=== PATIENT | male | born 1930 | race Caucasian/White ===

== ENCOUNTER 2016-06-28 07:44 | Inpatient (IN) | payer MEDICARE ==
[2016-06-28] VITALS (7 sets, daily range): BP systolic 121–157; BP diastolic 56–95
[~2016-06-28] VITALS: Ht 175.2 cm; Wt 85.7 kg
--- NOTE | ~2016-06-28 | PR ---
[place], [place] PROGRESS NOTE NAME: [id number] UNIT #: [id number] ROOM: 408 DOCTOR: REHAN HAMMOND MD BIRTHDATE: [birth year] DOS: 07/03/2016 SUBJECTIVE: The patient is feeling good, does not have any new complaints. OBJECTIVE: VITAL SIGNS: Blood pressure is 147/73, pulse of 75, respirations 20, temperature 97.5. LUNGS: Clear. HEART: Regular. ABDOMEN: Obese, soft. EXTREMITIES: Without any edema. ASSESSMENT AND PLAN: 1. Acute exacerbation of chronic obstructive pulmonary disease, improved and stable. Plan will be to discharge him to the retirement. 2. Chronic kidney injury with GFR 48, stage III renal failure. The patient to avoid nephrotoxic meds. REHAN HAMMOND MD CM:PNMANDA [id number] REHAN HAMMOND MD 07/03/16 0933 interface
--- NOTE | ~2016-06-28 | WRIGHTHP ---
[place], [place] PATIENT HISTORY AND PHYSICAL EXAM NAME: VALENCIA BEE [facility] #: [id number] UNIT #: [id number] ROOM: 408 DOCTOR: REHAN HAMMOND MD BIRTHDATE: [birth year] DOS: 06/28/2016 HISTORY OF PRESENT ILLNESS: The patient is not known to me, 86 years old, who comes in with complaints of difficulty breathing. The patient has had multiple admissions in the hospital, the last one was in March 2016. The patient states that at this time, he has had a cough for about 2-3 days. He has had a couple of ER visits and did not get any better, so he has been admitted to the hospital. PAST MEDICAL HISTORY: Significant for 1. COPD, oxygen dependent. 2. Frailty. He lives at the [facility]. 3. Acute exacerbation of COPD, failed outpatient regimen. 4. Benign prostatic hypertrophy. 5. History of acute kidney injury with hyperkalemia. 6. Benign hypertension. 7. Primary osteoarthritis of the lower legs. 8. CA of prostate. MEDICATIONS: That he is currently on are amlodipine 5 daily, vitamin D 50,000 units daily, Levaquin 500 daily, loratadine 10 daily, meloxicam 7.5 b.i.d., omeprazole 20 daily, polyethylene glycol 17 grams daily, trazodone 100 at bedtime. SOCIAL HISTORY: He smokes about 3 cigars a week. He was a smoker at home before the oxygen was started. He used to smoke a pack in a week. PHYSICAL EXAMINATION: GENERAL: He is awake and alert and oriented in no major distress. VITAL SIGNS: Graphic trend shows blood pressure 160/60, pulse of 80, respirations 18, temperature 98.5. LUNGS: Diminished breath sounds, scattered wheezes. HEART: Regular. ABDOMEN: Obese, soft. EXTREMITIES: Without any edema. ASSESSMENT AND PLAN: 1. The patient who has chronic obstructive pulmonary disease, centrilobular emphysema with acute exacerbation. He has failed outpatient regimen with antibiotics, has been admitted for IV steroids and antibiotics. Also, maximized the bronchodilators on his regimen. 2. History of kidney failure. His BUN and creatinine at 38 and 1.2. He may not be a good candidate for meloxicam, which will be discontinued. 3. Primary insomnia, was given Ambien yesterday. The patient states it did not work. We will switch to Restoril this morning. [place], [place] PATIENT HISTORY AND PHYSICAL EXAM NAME: VALENCIA BEE UNIT #: [id number] ROOM: [facility] DOCTOR: REHAN HAMMOND MD BIRTHDATE: [birth year] REHAN HAMMOND MD CM:HISPHYS:PATIENT HISTORY AND PHYSICAL EXAMINATION [id number] REHAN HAMMOND MD 06/29/16 1112 interface
--- NOTE | ~2016-06-28 | PR ---
[place], [place] PROGRESS NOTE NAME: VALENCIA BEE UNIT #: [id number] ROOM: 408 DOCTOR: REHAN HAMMOND MD BIRTHDATE: [birth year] DOS: SUBJECTIVE: The patient has a hoarse voice this morning. OBJECTIVE: VITAL SIGNS: Graphic trend shows pressure 152/68, pulse of 74, respirations 20, temperature 97.5. LUNGS: Diminished breath sounds. HEART: Regular. ABDOMEN: Obese, soft. EXTREMITIES: Without any edema. LABORATORY DATA: Blood pressure 152/68, pulse of 74, respirations 20, temperature 97.5. Blood culture showed no bacterial growth. MRSA of the nares was negative. ASSESSMENT AND PLAN: 1. The patient who presents with acute exacerbation of COPD. The patient has been admitted. IV steroids and breathing treatments have been ordered. He is definitely improving. We will taper the steroids down. 2. Hoarse of the voice, acute laryngitis could be from the Pulmicort that he is on. We will discontinue the medication. 3. Chronic renal failure. Avoid nephrotoxic meds. We will do a basic metabolic panel in the morning and plan is to discharge him to [place] tomorrow. REHAN HAMMOND MD CM:PNTRANS [id number] REHAN HAMMOND MD 07/02/16 0037 interface
--- NOTE | ~2016-06-28 | PR ---
[place], [place] PROGRESS NOTE NAME: VALENCIA BEE UNIT #: [id number] ROOM: 408 DOCTOR: REHAN HAMMOND MD BIRTHDATE: [birth year] DOS: 07/02/2016 SUBJECTIVE: The patient appears to be quite sleepy. It was hard to wake him up and he fell asleep again while talking to me. OBJECTIVE: VITAL SIGNS: Graphic trend shows that he is afebrile, pressure is 119/58, pulse is 66, respirations 20, temperature 98.2. LUNGS: Clear. HEART: Regular. ABDOMEN: Obese. EXTREMITIES: Without any edema. Small abrasion on his left emery area, which is resolving. LABORATORY DATA: White cell count is up to 14.5 this morning, it could be steroid effect. I do not have the basic metabolic panel yet. Blood culture showed no bacterial growth. MRSA nares was negative. ASSESSMENT AND PLAN: 1. The patient with acute exacerbation of chronic obstructive pulmonary disease, improving. We will taper the steroids further down. 2. Primary insomnia. He asked for a new sleeping medicine. He was given Restoril and he was also on trazodone, which may be too much for this 86-year-old patient. We will discontinue Restoril, ambulate the patient and make sure that he is stable enough to go back to the correction. REHAN HAMMOND MD CM:PNTRANS 0734 1231 REHAN HAMMOND MD 07/02/16 1230 interface
--- NOTE | ~2016-06-28 | DS ---
[place], [place] DISCHARGE SUMMARY NAME: VALENCIA BEE [facility] #: [id number] UNIT #: [id number] ROOM: 408 DOCTOR: REHAN HAMMOND MD BIRTHDATE: [birth year] DOS: HOSPITAL COURSE: The patient is 86 years old, not known to me. The patient is a resident of [facility], was brought in with complaints of difficulty breathing. He was on antibiotics already and did not have any improvement. He was brought in to the Emergency Room. He has a cough, which is productive of scant amounts of sputum. Also has shortness of breath. Please refer to H and P for details. After evaluation in the ER, he was admitted with diagnosis of acute exacerbation of COPD, failed outpatient regimen. The patient was admitted. IV steroids, IV antibiotics, and breathing treatments were ordered. He did complain of lack of sleep. Restoril was given, but it made him too sleepy and then had to discontinue the medication. Because of his increased sleepiness, he also was not taking too much of water, and so his BUN did go up slightly. Creatinine continued to improve. Slight hydration was given. The patient is not having any new complaints and is overall much better. He had normal lactic acid on admission, but blood cultures were done. This has come back negative. Nares cultures showed no evidence of MRSA. He does have a small wound on the left emery from bumping his leg on his bed. TheraHoney dressings were ordered, and we can continue dressings the same as at the half-way. The patient is stable. Discharge is being arranged for today back to the half-way. DISCHARGE MEDICATIONS: Guaifenesin 600 b.i.d., Ceftin 250 twice daily for 5 days, breathing treatments of DuoNeb q.i.d. p.r.n. for shortness of breath, amlodipine 5 daily, loratadine 10 daily, MiraLax 17 g daily, omeprazole 20 daily, trazodone 100 daily, vitamin D 50,000 units once a week, Aspercreme for local application b.i.d., povidone iodine ointment for local application to the left emery area, Tylenol 325 q.6 h. p.r.n. REHAN HAMMOND MD CM:JOSE 0832 1 REHAN HAMMOND MD 07/03/16 0921 interface
--- NOTE | ~2016-06-28 | PR ---
[place], [place] PROGRESS NOTE NAME: VALENCIA BEE UNIT #: [id number] ROOM: 408 DOCTOR: REHAN HAMMOND MD BIRTHDATE: [birth year] DOS: SUBJECTIVE: The patient seems to have rested well during the night. His cough and shortness of breath has subsided. OBJECTIVE: VITAL SIGNS: Graphic trend shows that he is afebrile, blood pressure 123/51, pulse of 70, respirations 20, temperature 98.5. LUNGS: Diminished breath sounds, but clear. HEART: Regular. ABDOMEN: Obese, soft, nontender. EXTREMITIES: Without any edema. A small bruised area noticed on the left eemry. ASSESSMENT AND PLAN: 1. An 86-year-old presents with cough and shortness of breath and acute exacerbation of COPD, failed outpatient regimen. 2. Primary insomnia, improved after the addition of new medicines. 3. Chronic kidney disease with history of acute kidney injury, nephrotoxic meds to be avoided. 4. Injury resulting in a small abrasion on the left emery area, is getting TheraHoney gel to the local area. The patient is stable, our plan is to [facility] him back to the [facility] tomorrow. REHAN HAMMOND MD CM:PNTRANS 0716 [id number] REHAN HAMMOND MD 06/30/16 1254 interface
[~2016-06-28 07:44] MED LIST: AMBIEN10 MG PO; AMINOPHYLLIN200 MG PO; AMLODIPINE BESYL5 MG PO; ASPERCREAM1 EA T; ASPERCREME76.5 GM TP; CLARITIN10 MG PO; K-PHOS500 MG PO; LEVAQUIN500 M2 PO; LISINOPRIL30 MG PO; MIRALAX POWDER255 G1 PO; MOBIC7.5 MG PO; NORVASC5 MG PO; OMEPRAZOLE D/R20 MG PO; POVIDONE IODINE T; PRILOSEC20 M1 PO; QUALITY CHOICE10 M3 PO; ROBITUSSIN DM 105 ML PO; SERTRALINE HYDR25 MG PO; SILVASORB TP; SMZ-TMP 400 MG-1 TAB PO; TRAZODONE HYDR100 MG PO; TRAZODONE100 MG PO; TYLENOL325 M1 PO; VIBRAMYCIN100 MG PO; VITAMIN D22000 UNIT PO; VITAMIN D50000 I3 PO; Zestril,Prinivi40 MG PO
[2016-06-28 08:19] LABS: HEMATOCRIT 37.6 % (42.0-52.0); HEMOGLOBIN 11.8 g/dl (14.0-18.0); MEAN CELL VOLUME 88.9 fl (80.0-94.0); MEAN CORPUSCULAR HGB 27.9 pg (27.0-31.0); MEAN CORPUSCULAR HGB CONC 31.4 g/dl (33.0-37.0); MEAN PLATELET VOLUME 10.5 fl (9.6-12.3); PLATELET COUNT AUTOMATED 172 10*3/uL (130-400); RED BLOOD COUNT 4.23 10*6/uL (4.50-5.90); RED CELL DISTRI WIDTH 15.9 % (0-14.5); WHITE BLOOD COUNT 12.8 10*3/uL (4.8-10.8)
[2016-06-28 08:36] LABS: PROTHROMBIN TIME 10.1 SECONDS (9.0-12.4)
[2016-06-28 08:37] LABS: BURR CELLS FEW; EOSINOPHIL # 0.3 10*3/uL (0-0.4); EOSINOPHILS 2 % (1-4); LYMPHOCYTE # 1.9 10*3/uL (1.3-4.4); MONOCYTE # 1.5 10*3/uL (0.1-1.0); NEUTROPHIL # 9.1 10*3/uL (2.3-7.9); NEUTROPHILS 71 % (47-73); OVALOCYTES FEW; PLATELET SUFFICIENCY NORMAL (NORMAL); TOTAL CELLS COUNTED 100 #CELLS
[2016-06-28 08:43] LABS: BILIRUBIN, TOTAL 0.5 mg/dl (0.2-1.0); C-REACTIVE PROTEIN 11.1 MG/DL (0-0.3); CKMB 2.7 ng/ml (0.5-3.6); MAGNESIUM 2.3 mg/dL (1.5-2.1); POTASSIUM 4.8 mmol/L (3.5-5.1); TOTAL PROTEIN 7.1 gm/dL (6.4-8.2)
[2016-06-29] VITALS: BP 151/69
[2016-06-29 08:00] VITALS: BP 160/60
[2016-06-29 12:00] VITALS: BP 144/61
[2016-06-29 16:00] VITALS: BP 138/59
[2016-06-29 20:00] VITALS: BP 163/61
[2016-06-30] VITALS: BP 123/51
[2016-06-30 08:00] VITALS: BP 132/55
[2016-06-30 12:00] VITALS: BP 120/51
[2016-06-30 16:00] VITALS: BP 134/60
[2016-06-30 20:00] VITALS: BP 120/54
[2016-07-01] VITALS: BP 137/48
[2016-07-01 08:00] VITALS: BP 152/68
[2016-07-01 13:00] VITALS: BP 135/52
[2016-07-01 16:00] VITALS: BP 124/50
[2016-07-01 20:00] VITALS: BP 152/63
[2016-07-02] VITALS: BP 119/58
[2016-07-02 07:07] LABS: HEMATOCRIT 36.8 % (42.0-52.0); HEMOGLOBIN 11.7 g/dl (14.0-18.0); MEAN CELL VOLUME 87.6 fl (80.0-94.0); MEAN CORPUSCULAR HGB 27.9 pg (27.0-31.0); MEAN CORPUSCULAR HGB CONC 31.8 g/dl (33.0-37.0); MEAN PLATELET VOLUME 10.6 fl (9.6-12.3); PLATELET COUNT AUTOMATED 155 10*3/uL (130-400); RED CELL DISTRI WIDTH 15.9 % (0-14.5); WHITE BLOOD COUNT 14.5 10*3/uL (4.8-10.8)
[2016-07-02 07:28] LABS: ACANTHOCYTES FEW; BURR CELLS FEW; LYMPHOCYTE # 0.3 10*3/uL (1.3-4.4); MONOCYTE # 0.6 10*3/uL (0.1-1.0); NEUTROPHIL # 13.6 10*3/uL (2.3-7.9); NEUTROPHILS 94 % (47-73); PLATELET SUFFICIENCY NORMAL (NORMAL); TOTAL CELLS COUNTED 100 #CELLS
[2016-07-02 07:34] LABS: POTASSIUM 4.7 mmol/L (3.5-5.1)
[2016-07-02 08:00] VITALS: BP 138/51
[2016-07-02 16:00] VITALS: BP 156/63
[2016-07-02 20:00] VITALS: BP 143/59
[2016-07-03] VITALS: BP 130/54
[2016-07-03 08:00] VITALS: BP 147/73
[2016-07-03] MEDS ORDERED: CEFUROXIME AXE250 MG PO (08:05)
[2016-07-03] MEDS ORDERED: MUCINEX ER600 MG PO (08:05)
[2016-07-03] MEDS ORDERED: DUONEB 3 MG/3 ML3 M1 INH (08:05)
== END 2016-07-03 15:07 | DRG 682 ==
LOC: ED 07:44 → 4E 09:20 → EDHOLD 09:20 → 4E 09:59
PROVIDERS: Emergency Medicine; Internal Medicine
DX: N17.9 Acute kidney failure, unspecified (principal); J18.9 Pneumonia, unspecified organism; Z99.81 Dependence on supplemental oxygen; J44.0 Chronic obstructive pulmonary disease with (acute) lower respiratory infection; J44.1 Chronic obstructive pulmonary disease with (acute) exacerbation; N18.3 Chronic kidney disease, stage 3 (moderate); F51.01 Primary insomnia; G47.9 Sleep disorder, unspecified; S80.812A Abrasion, left lower leg, initial encounter; I12.9 Hypertensive chronic kidney disease with stage 1 through stage 4 chronic kidney disease, or unspecified chronic kidney disease; Z85.46 Personal history of malignant neoplasm of prostate

== ENCOUNTER 2016-07-16 20:10 | Inpatient (IN) | payer MEDICARE ==
[~2016-07-16] VITALS: Ht 175.2 cm; Wt 79.5 kg
--- NOTE | ~2016-07-16 | PR ---
[place], [place] PROGRESS NOTE NAME: VALENCIA BEE [facility] #: [id number] UNIT #: [id number] ROOM: 404 DOCTOR: LOR RAMOS MD BIRTHDATE: [birth year] DOS: 07/18/2016 PULMONARY FOLLOWUP SUBJECTIVE: The patient was seen and examined on 07/18/2016. He has been noted comfortable at this time, still noted with coughing and intermittent sputum expectoration, currently on antibiotics. Currently undergoing modified barium swallow study. OBJECTIVE: VITAL SIGNS: Shows a normal temperature, respiratory rate 20, heart rate of 75, blood pressure 126/54 this morning. Pulse oxygen saturation was noted on 2 liters cannula 97% saturation. HEENT: Examination shows head was atraumatic. Eyes: No icterus. NECK: Supple. CARDIOVASCULAR: S1, S2 audible. LUNGS: Showed crackles with decreased breath sound in right lower lung were noted. ABDOMEN: Soft, nontender. LABORATORY DATA: BMP today: BUN 18, creatinine 1.38. CBC this morning: WBC count 13.9, mild anemia with normal platelet count. IMPRESSION: 1. The patient with acute aspiration pneumonia for this patient involving the right lower lobe for this patient. Currently treated for Gram-positive and Gram-negative infection. 2. Acute exacerbation of chronic obstructive pulmonary disease. 3. Acute kidney injury for the patient was also noted with the improvement in the kidney function in the last 24 hours. PLAN OF TREATMENT: Continue the patient on current plan of management with antibiotics, bronchodilators, monitor the results of the modified barium swallow. Other usual treatment to be continued. Supportive therapy as a plan of management and care. [place], [place] PROGRESS NOTE [facility] [id number] UNIT #: [id number] ROOM: 404 DOCTOR: LRO RAMOS MD BIRTHDATE: [birth year] LOR REYES MD CM:PNTRANS 1006 0228 LOR LYNN MD 07/19/16 0457 interface
--- NOTE | ~2016-07-16 | EKG ---
[place], [place] ELECTROCARDIOGRAM REPORT NAME: VALENCIA BEE UNIT #: [id number] ROOM: 426 DOCTOR: KELI AGUILERA MD BIRTHDATE: [birth year] DOS: 07/17/2016 TIME: 21 hours and 3 minutes. EKG shows sinus rhythm with a heart rate of 73 beats per minute. Normal cardiac axis. No significant ST-T abnormality. KELI AGUILERA MD CM:EKGRPT:ELECTROCARDIOGRAM REPORT 1404 1424 KELI AGUILERA MD
--- NOTE | ~2016-07-16 | PR ---
[place], [place] PROGRESS NOTE [id number] UNIT #: [id number] ROOM: 404 DOCTOR: REHAN HAMMOND MD BIRTHDATE: [birth year] DOS: SUBJECTIVE: The patient states that his nose is congested, but he is breathing better this morning. OBJECTIVE: VITAL SIGNS: Graphic trend shows a blood pressure 112/68, pulse of 78, respirations 18, temperature 97.5. LUNGS: Diminished breath sounds. HEART: Regular. ABDOMEN: Obese, soft, nontender. EXTREMITIES: Without any edema. LABORATORY DATA: Chest x-ray showed cardiomegaly without any evidence of pneumonia. Blood culture shows no bacterial growth. ASSESSMENT AND PLAN: 1. Right lower lobe pneumonia on admission with an elevated white cell count of 13,000. Chest x-ray shows clearing of the pneumonia. So the plan will be to discharge him to [facility] tomorrow on p.o. antibiotics. 2. Nasal congestion, Flonase will be ordered. 3. Methicillin-resistant Staphylococcus aureus positive, Bactroban ointment will be ordered. REHAN HAMMOND MD CM:PNTRANS [id number] REHAN HAMMOND MD 07/21/16 0412 interface
--- NOTE | ~2016-07-16 | CON ---
[place], [place] REPORT OF CONSULTATION NAME: VALENCIA BEE [facility] #: [id number] UNIT #: [id number] ROOM: 404 DOCTOR: LOR RAMOS MD BIRTHDATE: [birth year] DOS: 07/17/2016 PULMONARY CONSULTATION AND EVALUATION CONSULTATION REQUESTED BY: Dr. York. REASON FOR CONSULTATION: Assess the patient for acute pneumonia. HISTORY OF PRESENT ILLNESS: This is an 86-year-old elderly male who has been admitted under care with the primary care attending, Dr. York. The patient has been admitted to the [facility] 07/17/2015. He presented to the Emergency Room for this patient by the ambulance in the late evening. He has been brought from the [facility] and the patient has been described with history of pneumonia in the past, which was treated and currently feeling worse and noted progressive weakness. The patient was also noted change in mental status with acute confusion status. The patient does have symptoms of coughing with some sputum expectoration. He has been currently hospitalized for medical management and pneumonia. He has been noted somewhat poor historian. The patient stated that the cough has been noted with small amount of sputum expectoration at this time. He does have some symptoms of shortness of breath. Denies any wheezing. Denies symptoms of acute chest pain as well. REVIEW OF SYSTEMS: CONSTITUTIONAL: Limited; however, the patient is denying any symptoms of fever or chills. Denies symptoms of abnormal weight loss history. EYES: Denies any burning, redness, or tenderness. EARS, NOSE, THROAT SYMPTOMS: No sore throat, hoarseness, or otalgia. CARDIOVASCULAR: Denies anginal pain, edema or pain of the lower extremities. GASTROINTESTINAL: Denies any nausea, vomiting, diarrhea, abdominal pain, hematemesis, melena, or hematochezia. GENITOURINARY: Denies dysuria, suprapubic pain, hematuria. MUSCULOSKELETAL: Denies acute joint pain, redness, or tenderness. SKIN: No lesions or rashes. CENTRAL NERVOUS SYSTEM: Denies dizziness, headache, diplopia or seizures. Remaining systems were reviewed with the patient, they were noted all negative. Past medical record has been noted for the patient has been admitted to the hospital on 06/28/2017 and remained in the hospital until 07/03/2016 and discharged to the custodial after the medical management completion for acute exacerbation of chronic obstructive pulmonary disease. History of remaining systems are rather were reviewed with the patient and they were noted all negative. PAST MEDICAL HISTORY: Has been reported; 1. History of BPH. 2. History of fall previously. 3. Essential hypertension. 4. Osteoarthritis. [place], [place] REPORT OF CONSULTATION NAME: VALENCIA BEE UNIT #: [id number] ROOM: 404 DO[facility] [birth year] 5. Prostate cancer. 6. Gastroesophageal reflux disease. 7. History of depression. 8. Chronic kidney disease, severity not noted. 9. Possible history of chronic obstructive pulmonary disease as well. 10. History of parkinsonism. PAST SURGICAL HISTORY: 1. Cataract surgery. 2. Partial gastrectomy. 3. Tonsillectomy. 4. TURP. SOCIAL HISTORY: The patient stated that he is , currently a resident of a custodial. He has no children. Smoking was noted for this patient since younger age. Still smokes a pack of cigarettes per week. ____ not be smoking cigarettes last few days as he was feeling ill. He had worked for 43 years in the [employer]. FAMILY HISTORY: The patient's father at 89 years old from old age. The mother at age 7575 years old from history of arthritis as well. MEDICATIONS: Current administered medications for the patient were noted use of IV Zosyn, vancomycin, and DuoNeb. ALLERGIES: No known drug allergies. PHYSICAL EXAMINATION: GENERAL: This is an 86-year-old white male who has been currently lying in his bed without any distress. Height of 5 feet 9 inches, weight of 79, BMI 25.9. VITAL SIGNS: For the patient which has been recorded showed the temperature noted normal, respirations 16-20, pulse 70-78, blood pressure 115/39-100/69. Pulse oxygen saturation of the patient noted 2 liters cannula 94% saturation. The oxygen saturation of the patient noted on admission 95% on 2 L nasal cannula. HEENT: Head was atraumatic. Eyes nonicterus. NECK: Supple. CARDIOVASCULAR: S1, S2 is audible. LUNGS: Examination of lungs for the patient noted without any crackles. Moderate decreased breath sounds noted with questionable wheezing. ABDOMEN: Noted with mild to moderate obesity, bowel sounds present. EXTREMITIES: Shows no edema, clubbing or cyanosis. CENTRAL NERVOUS SYSTEM: Intact. No focal deficit. Cranial nerves 2 and 12 intact. SKIN: No lesions or rashes. MUSCULOSKELETAL SYMPTOM: No deformities. LABORATORY DATA: CMP of the patient on admission yesterday for the patient 116, BUN 28, creatinine 1.96. Glucose 120. Carbon dioxide 20. CBC of the patient of 07/16, WBC count 19.3, hemoglobin 12.1, hematocrit 37.3, platelet count was [place], [place] REPORT OF CONSULTATION NAME: VALENCIA BEE UNIT #: [id number] ROOM: 404 DOCTOR: LOR RAMOS MD BIRTHDATE: [birth year] normal. Lactic acid 2.0. Assessment of the labs for this patient from the previous admission for this patient's chemistry for this patient that was done on his previous admission in earlier time of ____ 07/02/2016 at that time shows BUN of 43, creatinine 1.39. IMAGING DATA: Chest x-ray of the patient that was done for the patient of 07/16/2016, 1 view was taken shows some elevation of the right hemidiaphragm. The patient possibility to aspiration cannot be excluded. CT scan of the abdomen and pelvis, which was also done for the patient this morning shows evidence of moderate degree of consolidation, which was clearly visible in the right lower lung with some elevation in the right hemidiaphragm. Left lung was noted apparently clear other visible images. Chest x-ray of the patient that was done for this patient on 06/24/2016 still shows elevation of the right hemidiaphragm as well. IMPRESSION: 1. The patient who has been currently admitted to the hospital noted with severe leukocytosis with right lower lobe infiltration area of consolidation change in mental status, possibly acute aspiration pneumonia would be considered. 2. The patient with COPD for this patient was described with chronic nicotine dependence and does not seem to have a severe acute exacerbation. Early exacerbation was noted. 3. History of other previous medical problems. The patient and residency the [facility] facility. 4. Acute injury for the patient most likely secondary to the current intravascular volume depletion for this patient would be considered. The creatinine has been increased to 1.3-1.9 in the last couple of weeks. PLAN OF TREATMENT: The patient is already started on broad spectrum intravenous antibiotic for this patient from admission. He will be started on IV Zosyn and vancomycin for this patient to be continued as which was given in the Emergency Room. Obtain the cultures. Bronchodilator will be given. Solu-Medrol at this time used was not be necessary. The patient started with active severe wheezing, it will be necessary current bronchodilators, use was suffice. Other supportive plan and management as well. Monitor blood culture results. Supportive therapy, other plan of care and treatment. Monitoring of the chest x-ray of the patient closely as well with a PA lateral view to a more definitive reassess the patient's right lower lobe infiltration. Also ordered the fluoroscopy. The patient to rule out right diaphragmatic paralysis. Further change in treatment will be done based on the progression of the illness. [place], [place] REPORT OF CONSULTATION NAME: VALENCIA BEE UNIT #: [id number] ROOM: 404 DOCTOR: LOR RAMOS MD BIRTHDATE: [birth year] LOR REYES MD CM:CONSTR:REPORT OF CONSULTATION 1325 07/18/16 5275 interface
--- NOTE | ~2016-07-16 | PR ---
[place], [place] PROGRESS NOTE [id number] #: [id number] ROOM: 426 DOCTOR: REHAN HAMMOND MD BIRTHDATE: [birth year] DOS: SUBJECTIVE: The patient states that he feels good and does not have a cough anymore. He did undergo bronchoscopy yesterday. OBJECTIVE: VITAL SIGNS: Blood pressure is 122/78, pulse of 90, respirations 21, temperature 97.8. LUNGS: Clear. HEART: Regular. ABDOMEN: Soft. EXTREMITIES: Without any edema. ASSESSMENT AND PLAN: 1. Right lower lobe pneumonia, improving. 2. Bronchoscopy, bronch cultures are not available yet. Once we have the final culture results, if it is negative, the plan is to discharge him to correction on p.o. antibiotics. 3. Chronic renal insufficiency, stage 3, multifactorial, possibly from the underlying prerenal azotemia, which is corrected, we will recheck his labs again tomorrow. REHAN HAMMOND MD CM:PNTRANS 0737 1453 REHAN HAMMOND MD 07/21/16 1451 interface
--- NOTE | ~2016-07-16 | DS ---
[place], [place] DISCHARGE SUMMARY NAME: VALENCIA BEE UNIT #: [id number] ROOM: 426 DOCTOR: REHAN HAMMOND MD BIRTHDATE: [birth year] DOS: 07/22/2016 The patient is 86 years old. The patient is being discharged to [facility]. He was admitted on 07/17/2016 and discharged on 07/22/2016. DIAGNOSES: 1. Right lower lobe pneumonia as well as right upper lobe pneumonia, possible aspiration, which is resolved. 2. Status post bronchoscopy with negative bronch cultures. 3. Methicillin-resistant Staphylococcus aureus of the nares. 4. 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 5. Status post Speech consult without any evidence of aspiration. DIET: Please continue to follow him while eating his food. MEDICATIONS ON DISCHARGE: Bactroban ointment for local application nares twice daily for 5 days, Ceftin 250 twice daily for 5 days, amlodipine 5 daily, loratadine 10 daily, MiraLax 17 grams daily, omeprazole 20 daily, Aspercreme for local application twice a day, Tylenol 325 q.6, guaifenesin 600 b.i.d., breathing treatments with DuoNeb q.i.d. p.r.n. for shortness of breath, vitamin D 50,000 units once a week, acetaminophen 650 b.i.d. HOSPITAL COURSE: This patient is 86 years old, resident of [facility], was brought in with complaints of difficulty breathing. Please refer H and P and notes dictated by Dr. York for details. Dr. Knox was consulted. IV antibiotics were ordered. Blood cultures were done, which showed no bacterial growth. He was thought to have aspiration pneumonia. A speech consult was ordered, they did not notice any aspiration. He underwent a bronchoscopy. Bronch culture shows no bacterial growth. Chest x-ray shows improvement in the pneumonia. The patient is much better and is not having any complaints. His white cell count is normal at 8.9. Basic metabolic panel is normal. So, the plan is to discharge him to home to be followed by Dr. York at the [facility]. [place], [place] DISCHARGE SUMMARY NAME: VALENCIA BEE UNIT #: [id number] ROOM: 426 DOCTOR: REHAN HAMMOND MD BIRTHDATE: [birth year] REHAN HAMMOND MD CM:JOSE 0737 0905 REHAN HAMMOND MD 07/22/16 0958 interface
--- NOTE | ~2016-07-16 | PR ---
[place], [place] PROGRESS NOTE NAME: VALENCIA BEE UNIT #: [id number] ROOM: 404 DOCTOR: LOR RAMOS MD BIRTHDATE: [birth year] DOS: 07/19/2016 PULMONARY FOLLOWUP NOTE SUBJECTIVE: He was seen and examined on 07/19/2016. He has been comfortably resting in his bed. The cough has been described for the patient with some sputum expectoration at times. The patient denies any symptoms of chest pain or any abdominal pain. OBJECTIVE: VITAL SIGNS: For the patient, which has been recorded show the temperature of the patient noted as normal, the respiratory rate 18, heart rate 86, blood pressure 99/56-128/62. Pulse oxygen saturation of the patient noted as 94% on room air. HEENT: No acute change. NECK: Supple. CARDIOVASCULAR SYSTEM: S1, S2 audible. LUNGS: Noted decreased breath sounds in the lower portion of the lungs without any crackles. ABDOMEN: Soft, nontender. LABORATORY DATA: CBC of the patient of 07/19/2016, WBC count 13.5, hemoglobin 11.8, hematocrit 35.9, platelet count was normal. Urine culture of the patient was noted with no bacterial growth final results. The patient has fluoroscopy of the diaphragm for the patient was noted with bilateral diaphragmatic paresis or paralysis. 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 PLAN OF TREATMENT: Repeat another chest x-ray in the morning for the patient, PA and lateral view to assessment of the progression of the pneumonia. In the meantime, continue patient's current therapy and plan of management as in progress. Usual care. Supportive therapy, plan of management and other care. No further change in treatment at this time will be necessary. Oxygen supplementation and other treatment to be continued. Monitor cultures of the sputum when available. [place], [place] PROGRESS NOTE NAME: VALENCIA BEE UNIT #: [id number] ROOM: 404 DOCTOR: LOR RAMOS MD BIRTHDATE: [birth year] LOR REYES MD CM:PNTRANS [id number] LOR LYNN MD 07/20/16 0141 interface
--- NOTE | ~2016-07-16 | PR ---
[place], [place] PROGRESS NOTE NAME: VALENCIA BEE UNIT #: [id number] ROOM: 426 DOCTOR: AMY LYNN MD,LOR BIRTHDATE: [birth year] DOS: 07/21/2016 PULMONARY FOLLOWUP NOTE SUBJECTIVE: The patient has been noted awake and alert at this time. He has bronchoscopy completed yesterday with significant amount of secretions removed from the endobronchial tree in the right lower lobe. The patient has been noted without any ongoing acute respiratory complaints, noted quite comfortable. Denies symptoms of chest pain. OBJECTIVE: VITAL SIGNS: Normal temperature, respiratory rate 18, heart rate 82, blood pressure 109/63. Intake is 760, output 600 mL. Pulse oxygen saturation on 2 L nasal cannula 98% saturation recorded. HEENT: Examination shows no new change. CARDIOVASCULAR SYSTEM: S1, S2 audible. LUNGS: Noted without any wheezing or crackles. ABDOMEN: Soft, nontender. LABORATORY DATA: The Gram stain of bronchial washing, moderate white blood cells, few epithelial cells, rare gram-positive cocci in pairs and rare budding yeast, preliminary showing normal pelon, final culture results pending. IMPRESSION: 1. The patient with acute aspiration pneumonia, right lower lobe with reduction and improvement in the respiratory symptoms were noted after the bronchoscopy. 2. Overall severe debility. 3. Acute exacerbation of chronic obstructive pulmonary disease. PLAN OF TREATMENT: No change in plan of management, monitor culture results. Continue other previous therapy, plan of management, and other care. Usual care, other supportive plan of therapy and management. LOR REYES MD CM:PNTRANS [phone] LOR LYNN MD 07/30/16 1035 interface
--- NOTE | ~2016-07-16 | PR ---
[place], [place] PROGRESS NOTE [id number] UNIT #: [id number] ROOM: 426 DOCTOR: REHAN HAMMOND MD BIRTHDATE: [birth year] DOS: SUBJECTIVE: The patient looks comfortable, does not have any complaints today. OBJECTIVE: VITAL SIGNS: Blood pressure is 132/76, pulse of 77, respirations 18, temperature 97.5. LUNGS: Clear. HEART: Regular. ABDOMEN: Obese, soft. EXTREMITIES: Without any edema. ASSESSMENT AND PLAN: 1. Right lower lobe pneumonia, clinically improved as well as radiologically also improved. The patient to go back to [facility] today. 2. Bronchoscopy with bronch culture showing normal pelon. We will start him on p.o. medicines when he is discharged. REHAN HAMMOND MD CM:PNTRANS [phone] REHAN HAMMOND MD 07/22/16 0808 interface
--- NOTE | ~2016-07-16 | PR ---
[place], [place] PROGRESS NOTE NAME: [facility] [id number] UNIT #: [id number] ROOM: 426 DOCTOR: LOR RAMOS MD BIRTHDATE: [birth year] DOS: 07/22/2016 PULMONARY PROGRESS NOTE SUBJECTIVE: The patient was seen and examined on 07/22/2016, has been comfortably resting, continued to show reduction of the respiratory symptoms. Cough was still noted intermittently. There were no symptoms of chest pain or any abdominal pain. OBJECTIVE: VITAL SIGNS: Showed a normal temperature, respirations 18, heart rate 75, blood pressure 132/76. Pulse oxygen saturation on 2.5 L nasal cannula was 97% saturation recorded. HEENT: Head was atraumatic. Eyes were nonicteric. NECK: Supple. CARDIOVASCULAR: S1, S2 audible. LUNGS: Noted with moderate decreased breath sounds, occasional crackles. ABDOMEN: Soft, nontender. LABORATORY DATA: CBC: Mild anemia, otherwise normal CBC. BMP this morning noted as normal. The cultures of the bronchial washing were noted moderate growth of MRSA. IMPRESSION: 1. Acute aspiration pneumonia with methicillin-resistant Staphylococcus aureus, right lower lobe, with resolving respiratory symptoms progressively. 2. Elderly age. 3. Improving acute hypoxic respiratory failure. PLAN OF TREATMENT: No changes in the plan and management at this time. The patient could be discharged on oral Bactrim-DS twice a day and to be sent back to the nursing facility for further continued care. In the meantime, continue the plan of treatment and care management. Usual care. Supportive therapy as a plan of care. [place], [place] PROGRESS NOTE NAME: [facility] BEE [facility] #: [id number] UNIT #: [id number] ROOM: 426 DOCTOR: LOR RAMOS MD BIRTHDATE: [birth year] LOR REYES MD CM:PNTRANS [phone] LOR LYNN MD 08/24/16 1056 interface
--- NOTE | ~2016-07-16 | PR ---
[place], [place] PROGRESS NOTE [id number] UNIT #: [id number] ROOM: 404 DOCTOR: KELI AGUILERA MD BIRTHDATE: [birth year] DOS: 07/19/2016 SUBJECTIVE: The patient is confused, appears somewhat short of breath. PHYSICAL EXAMINATION: GENERAL APPEARANCE: The patient is alert and oriented x 3, in no visible distress. VITAL SIGNS: Blood pressure 133/94, heart rate of 94 beats per minute, breathing 20 times per minute, temperature 98 degrees Fahrenheit. HEENT AND NECK: Exam within normal limits. CARDIOVASCULAR SYSTEM: Heart rate is regular in rate and rhythm. S1 and S2 normally audible. LUNGS: Decreased breath sounds and expiratory wheezing which is scattered throughout the lungs. ABDOMEN: Soft, nontender. No obvious organomegaly. Bowel sounds are present. EXTREMITIES: Without significant cyanosis or edema. IMPRESSION: 1. The patient with right lower lobe pneumonic infiltrate and pneumonia, being treated with antibiotics. White cell count has improved to 13,500, but he is still short of breath and I will get a consult with Dr. Knox, the perioperative educator because patient may require bronchoscopy for further evaluation. 2. Suspected aspiration pneumonia for which speech therapy has been consulted. 3. Vitamin D deficiency. The patient is on supplements. 4. Exacerbation of chronic obstructive pulmonary disease and shortness of breath, being treated with bronchodilators. 5. 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 We are taking bedsore precautions turning him every 2 hours and using air mattress. 6. Benign essential hypertension with controlled blood pressures. KELI AGUILERA MD CM:PNTRANS [phone] KELI AGUILERA MD 07/20/16 0703 interface
--- NOTE | ~2016-07-16 | PROC NOTE ---
[place], [place] PROCEDURE NOTE NAME: VALENCIA BEE [facility] #: [id number] UNIT #: [id number] ROOM: 404 DOCTOR: AMY LYNN MD,LOR BIRTHDATE: [birth year] DOS: 07/20/2016 BRONCHOSCOPY PREOPERATIVE DIAGNOSES: The patient with persistent cough with right lower lobe pneumonia from aspiration. POSTOPERATIVE DIAGNOSES: 1. Removal of copious amount of mucopurulent material from the right lower lobe with finding consistent with acute bacterial pneumonia at this time. 2. The patient was also noted with piece of the , which was present in the right vallecula, which was removed mostly with the Radha forceps. PROCEDURE DESCRIPTION: Informed consent was obtained for the patient. The patient was brought to the OR and placed in supine position. Conscious sedation administered by the Anesthesia Department. After achieving proper sedation, airway introduced into the mouth. Bronchoscope advanced into the airway into laryngeal area. Epiglottis and vocal cords were seen. Vocal cords moving symmetrically with movements. Bronchoscope advanced through the vocal cord and tracheal lumen. Tracheal lumen was identified and noted with a small amount of secretion suctioned out. Right main stem bronchus and the lower lobe bronchi were noted filled with thick mucopurulent material which was suctioned out with the help of normal saline wash. Right upper, right middle, left upper, lingula, and lower lobe opening were all noted patent. All secretions suctioned out. BAL specimen was obtained from the right lower lobe as well. Procedure well tolerated by the patient. There was also a piece of for this patient, which was present in the vallecula, removed with the help of Radha forceps. Procedure well tolerated. Postoperative findings were discussed with the patient's family members. No changes in treatment for this patient at this time will be needed. The culture will be monitored to make any final recommendation of the patient's antibiotic duration and continuation. LOR REYES MD CM:PROCNOTE:PROCEDURE NOTE 1200 [id number] LOR LYNN MD
--- NOTE | ~2016-07-16 | PR ---
[place], [place] PROGRESS NOTE [id number] UNIT #: [id number] ROOM: 404 DOCTOR: KELI AGUILERA MD BIRTHDATE: [birth year] DOS: 07/18/2016 SUBJECTIVE: The patient is starting to feel much better, still quite weak. GENERAL APPEARANCE: The patient is alert and oriented x 3, in no visible distress. HEENT AND NECK: Exam within normal limits. CARDIOVASCULAR SYSTEM: Heart rate is regular in rate and rhythm. S1 and S2 normally audible. LUNGS: Clear to auscultation. ABDOMEN: Soft, nontender. No obvious organomegaly. Bowel sounds are present. EXTREMITIES: Without significant cyanosis or edema. IMPRESSION: 1. The patient with right lower lobe pneumonic infiltrates, [place] [id number], white cell count. 2. Suspected aspiration pneumonia for which speech is following the patient. 3. Leukocytosis secondary to pneumonia, being treated with antibiotics. Dr. Knox linux unix engineer is also following and is treating her with Zosyn and vancomycin. 4. Vitamin D deficiency, replaced with supplements. 5. Exacerbation of chronic obstructive pulmonary disease with increased shortness of breath with acute over chronic respiratory failure, improving with treatment. 6. Adult failure to thrive and generalized weakness. The patient working with physical therapy. 7. Benign essential hypertension with controlled blood pressures. KELI AGUILERA MD CM:PNTRANS [phone] KELI AGUILERA MD 07/19/16 0457 interface
--- NOTE | ~2016-07-16 | WRIGHTHP ---
[place], [place] PATIENT HISTORY AND PHYSICAL EXAM NAME: VALENCIA BEE [facility] #: [id number] UNIT #: [id number] ROOM: 404 DOCTOR: KELI AGUILERA MD BIRTHDATE: [birth year] DOS: 07/17/2016 HISTORY OF PRESENT ILLNESS: The patient is an 86-year-old gentleman with a past medical history of 1. Old age advanced disability. The patient resides at [facility]. 2. Advanced COPD with oxygen dependence and chronic respiratory failure. 3. Benign prostatic hypertrophy. 4. Benign essential hypertension. 5. History of cancer of the prostate. 6. Chronic constipation. 7. Chronic primary insomnia. 8. Vitamin D deficiency. The patient presented to the Emergency Department at [facility] and was seen by Dr. Simon for increasing shortness of breath, cough and purulent sputum along with wheezing. The patient was found to have a right lower lobe pneumonic infiltrates, not seen on the chest x-ray, but seen on the CT scan of the abdomen and developing pneumonia, suspected aspiration. The patient also was found to have elevated white cell count of 9300 with left shift, 86% neutrophils. The patient was recommended for admission and further management. After admission, the patient says he is starting to feel much better. His breathing is improving. He also has cough with some purulent sputum. The patient says he is generally quite weak and is able to walk only a little with the help of a walker. No complaint of nausea, vomiting, diarrhea, constipation, no abdominal pains. SYSTEMS REVIEW: LUNGS: Cough, shortness of breath and wheezing. GASTROINTESTINAL: No nausea, vomiting, diarrhea, or constipation. CARDIOVASCULAR SYSTEM: No chest pains or palpitations. SOCIAL HISTORY: The patient resides at a assisted. He has advanced disability and denies smoking cigarettes, alcohol and drug abuse. FAMILY HISTORY: Noncontributory. HOME MEDICATIONS: MiraLax, omeprazole, Claritin, Norvasc, DuoNebs. PHYSICAL EXAMINATION: GENERAL: Alert, oriented x 3, not a very good historian, in no visible distress, except generalized weakness. VITAL SIGNS: Blood pressure 133/58, heart rate 84 beats per minute, breathing 20 times per minute, temperature 98.6 degrees Fahrenheit. HEENT AND NECK: Extraocular movements are intact. Sclerae are anicteric. Oral mucosa is moist and clean. No obvious facial weakness. Neck is supple without any lymphadenopathy. No thyromegaly. No JVD. No carotid arterial bruits. LUNGS: Somewhat decreased breath sounds, especially at the right base on lung auscultation. CARDIOVASCULAR SYSTEM: Heart rate is regular in rate and rhythm. S1 and S2 [place], [place] PATIENT HISTORY AND PHYSICAL EXAM [facility]: [id number] UNIT #: [id number] ROOM: [facility] DOCTOR: KELI AGUILERA MD BIRTHDATE: [birth year] normally audible. No significant murmur or any other abnormal cardiac sounds. ABDOMEN: The patient had a ventral abdominal hernia with an abdominal binder. EXTREMITIES: Without significant cyanosis or edema. Warm to touch. CENTRAL NERVOUS SYSTEM: Alert and oriented x 3. Cranial nerves II-XII are intact. Speech is normal. The patient is able to move all extremities. Normal muscle strength. Deep tendon reflexes are equal on both sides. Plantars were downgoing. IMPRESSION: 1. The patient with a right lower lobe pneumonia, cough, purulent sputum and leukocytosis with acute over chronic respiratory failure and early sepsis is being treated with antibiotics and he is much improved. I will follow his blood counts. 2. Suspicion of aspiration pneumonia for which I am getting speech consult and if recommended, I will get a modified barium swallowing study performed. 3. Severe leukocytosis secondary to pneumonia. The patient is being treated with IV Zosyn and vancomycin by Dr. Konx, the network operations technician and I will repeat blood counts tomorrow. 4. Vitamin D deficiency, treated with supplements. 5. Exacerbation of chronic obstructive pulmonary disease with increased shortness of breath, being treated with DuoNebs and oxygen. 6. Adult failure to thrive and generalized weakness. The patient is being turned every 2 hours and we are using an air mattress and physical therapy and taking bedsore precautions. 7. Benign essential hypertension with controlled blood pressures. KELI AGUILERA MD CM:HISPHYS:PATIENT HISTORY AND PHYSICAL EXAMINATION 18 16 KELI AGUILERA MD 07/17/16 1816 interface
[2016-07-16 20:10] VITALS: BP 109/62
[~2016-07-16 20:10] MED LIST changes: +CEFUROXIME AXE250 MG PO; +DUONEB 3 MG/3 ML3 M1 INH; +MUCINEX ER600 MG PO
[2016-07-16 20:40] VITALS: BP 105/55
[2016-07-16 21:31] LABS: ALBUMIN 2.4 gm/dl (3.1-4.5); ALKALINE PHOSPHATASE 85 U/L (45-117); BILIRUBIN, TOTAL 0.7 mg/dl (0.2-1.0); BUN 28 mg/dl (7-24); CARBON DIOXIDE 20 mmol/L (21-32); CHLORIDE 109 mmol/L (98-107); EST GLOM FILT AFRICAN AMERICAN 39 ml/min; GLUCOSE 120 mg/dL (65-99); MAGNESIUM 2.4 mg/dL (1.5-2.1); POTASSIUM 4.5 mmol/L (3.5-5.1); SGOT/AST 21 IU/L (3-35); SGPT/ALT 27 U/L (12-78); SODIUM 141 mmol/L (136-145)
[2016-07-16 21:32] LABS: TROPONIN I < 0.015 ng/ml (<0.5)
[2016-07-16 21:40] VITALS: BP 110/62
[2016-07-16 21:42] LABS: BASO % 0.1 % (0.0-1.0); EOS # 0.1 10*3/uL (0.0-0.4); EOS % 0.4 % (1.0-4.0); HEMATOCRIT 37.6 % (42.0-52.0); HEMOGLOBIN 12.1 g/dl (14.0-18.0); IG # 0.1 10*3/uL (0.0-0.1); LYMPH % 5.4 % (27.0-41.0); MEAN CELL VOLUME 85.3 fl (80.0-94.0); MEAN CORPUSCULAR HGB 27.4 pg (27.0-31.0); MEAN CORPUSCULAR HGB CONC 32.2 g/dl (33.0-37.0); MEAN PLATELET VOLUME 10.9 fl (9.6-12.3); MONO # 1.5 10*3/uL (0.1-1.0); MONO % 7.6 % (3.0-9.0); NEUT # 16.6 10*3/uL (2.3-7.9); PLATELET COUNT AUTOMATED 196 10*3/uL (130-400); RED BLOOD COUNT 4.41 10*6/uL (4.50-5.90); RED CELL DISTRI WIDTH 16.4 % (0-14.5); WHITE BLOOD COUNT 19.3 10*3/uL (4.8-10.8)
[2016-07-16 22:47] VITALS: BP 132/66
[2016-07-16 23:21] LABS: BILIRUBIN 1+ (NEGATIVE); BLOOD 2+ (NEGATIVE); CLARITY CLEAR (CLEAR); COLOR YELLOW (YELLOW); GLUCOSE NEGATIVE (NEGATIVE); KETONE NEGATIVE (NEGATIVE); LEUKO ESTERASE NEGATIVE (NEGATIVE); NITRITE NEGATIVE (NEGATIVE); PH 5.5 (5.0-9.0); PROTEIN 2+ (NEGATIVE); SPECIFIC GRAVITY 1.015 (1.005-1.030); UROBILINOGEN 0.2 E.U./dl (0.2-1.0)
[2016-07-16 23:27] LABS: RBC 31-40 rbc/hpf (0-2)
[2016-07-16 23:28] LABS: URINE REFLEX COMMENT YES (NO)
[2016-07-17] VITALS (8 sets, daily range): BP systolic 100–138; BP diastolic 39–88
[2016-07-17] MEDS ORDERED: VITAMIN D50000 I3 PO (00:55)
[2016-07-17] MEDS ORDERED: ARTHRITIS PAIN650 MG PO (00:57)
[2016-07-18] VITALS: BP 129/62
[2016-07-18 07:31] LABS: BASO % 0.2 % (0.0-1.0); EOS # 0.2 10*3/uL (0.0-0.4); EOS % 1.2 % (1.0-4.0); HEMATOCRIT 35.5 % (42.0-52.0); HEMOGLOBIN 11.6 g/dl (14.0-18.0); IG # 0.1 10*3/uL (0.0-0.1); LYMPH % 6.8 % (27.0-41.0); MEAN CELL VOLUME 83.9 fl (80.0-94.0); MEAN CORPUSCULAR HGB 27.4 pg (27.0-31.0); MEAN CORPUSCULAR HGB CONC 32.7 g/dl (33.0-37.0); MONO # 1.5 10*3/uL (0.1-1.0); MONO % 10.5 % (3.0-9.0); NEUT # 11.2 10*3/uL (2.3-7.9); NEUT % 80.7 % (47.0-73.0); PLATELET COUNT AUTOMATED 232 10*3/uL (130-400); RED BLOOD COUNT 4.23 10*6/uL (4.50-5.90); RED CELL DISTRI WIDTH 16.6 % (0-14.5); WHITE BLOOD COUNT 13.9 10*3/uL (4.8-10.8)
[2016-07-18 08:00] VITALS: BP 126/54
[2016-07-18 08:02] LABS: ALBUMIN 2.2 gm/dl (3.1-4.5); BILIRUBIN, TOTAL 0.9 mg/dl (0.2-1.0); POTASSIUM 3.8 mmol/L (3.5-5.1); TOTAL PROTEIN 6.6 gm/dL (6.4-8.2)
[2016-07-18 12:00] VITALS: BP 129/58
[2016-07-18 16:00] VITALS: BP 138/66
[2016-07-18 20:00] VITALS: BP 128/61
[2016-07-19] VITALS: BP 132/67
[2016-07-19 07:38] LABS: HEMATOCRIT 35.9 % (42.0-52.0); HEMOGLOBIN 11.8 g/dl (14.0-18.0); MEAN CELL VOLUME 83.9 fl (80.0-94.0); MEAN CORPUSCULAR HGB 27.6 pg (27.0-31.0); MEAN CORPUSCULAR HGB CONC 32.9 g/dl (33.0-37.0); MEAN PLATELET VOLUME 10.8 fl (9.6-12.3); PLATELET COUNT AUTOMATED 246 10*3/uL (130-400); RED BLOOD COUNT 4.28 10*6/uL (4.50-5.90); RED CELL DISTRI WIDTH 16.8 % (0-14.5); WHITE BLOOD COUNT 13.5 10*3/uL (4.8-10.8)
[2016-07-19 07:58] LABS: EOSINOPHIL # 0.3 10*3/uL (0-0.4); EOSINOPHILS 2 % (1-4); LYMPHOCYTE # 1.5 10*3/uL (1.3-4.4); MONOCYTE # 1.1 10*3/uL (0.1-1.0); NEUTROPHIL # 10.7 10*3/uL (2.3-7.9); NEUTROPHILS 79 % (47-73); TOTAL CELLS COUNTED 100 #CELLS
[2016-07-19 07:59] LABS: BURR CELLS FEW; PLATELET SUFFICIENCY NORMAL (NORMAL); POLYCHROMASIA SLIGHT; SCHISTOCYTES FEW
[2016-07-19 08:00] VITALS: BP 128/62
[2016-07-19 08:05] LABS: ALBUMIN 2.1 gm/dl (3.1-4.5); ALKALINE PHOSPHATASE 97 U/L (45-117); BUN 15 mg/dl (7-24); CARBON DIOXIDE 18 mmol/L (21-32); CHLORIDE 112 mmol/L (98-107); EST GLOM FILT AFRICAN AMERICAN > 60 ml/min; GLUCOSE 92 mg/dL (65-99); SGOT/AST 35 IU/L (3-35); SGPT/ALT 33 U/L (12-78); SODIUM 143 mmol/L (136-145); TOTAL PROTEIN 6.9 gm/dL (6.4-8.2)
[2016-07-19 12:00] VITALS: BP 99/56
[2016-07-19 16:00] VITALS: BP 133/94
[2016-07-20] VITALS (9 sets, daily range): BP systolic 102–139; BP diastolic 38–85
[2016-07-20 00:01] LABS: COL/EPI 101 SECONDS (86-157)
[2016-07-20 09:10] LABS: HEMOGLOBIN 11.7 g/dl (14.0-18.0); MEAN CELL VOLUME 83.7 fl (80.0-94.0); MEAN CORPUSCULAR HGB 27.2 pg (27.0-31.0); MEAN CORPUSCULAR HGB CONC 32.5 g/dl (33.0-37.0); MEAN PLATELET VOLUME 11.4 fl (9.6-12.3); PLATELET COUNT AUTOMATED 282 10*3/uL (130-400); RED CELL DISTRI WIDTH 16.9 % (0-14.5); WHITE BLOOD COUNT 13.3 10*3/uL (4.8-10.8)
[2016-07-20 09:30] LABS: BILIRUBIN, TOTAL 0.8 mg/dl (0.2-1.0); POTASSIUM 4.1 mmol/L (3.5-5.1)
[2016-07-20 09:52] LABS: EOSINOPHIL # 0.4 10*3/uL (0-0.4); EOSINOPHILS 3 % (1-4); LYMPHOCYTE # 1.3 10*3/uL (1.3-4.4); MONOCYTE # 1.1 10*3/uL (0.1-1.0); NEUTROPHIL # 10.5 10*3/uL (2.3-7.9); NEUTROPHILS 79 % (47-73); TOTAL CELLS COUNTED 100 #CELLS
[2016-07-20 09:53] LABS: BURR CELLS MODERATE; PLATELET SUFFICIENCY NORMAL (NORMAL); SCHISTOCYTES FEW
[2016-07-21] VITALS: BP 122/78
[2016-07-21 08:00] VITALS: BP 98/52
[2016-07-21 08:28] VITALS: BP 120/60
[2016-07-21 12:00] VITALS: BP 109/63
[2016-07-21 16:00] VITALS: BP 148/58
[2016-07-21 16:07] LABS: ACID FAST SPEC PROCESSING Concentration (.)
[2016-07-21 20:00] VITALS: BP 127/68
[2016-07-22] VITALS: BP 132/76
[2016-07-22 06:25] LABS: BUN 13 mg/dl (7-24); CARBON DIOXIDE 21 mmol/L (21-32); CHLORIDE 113 mmol/L (98-107); EST GLOM FILT AFRICAN AMERICAN > 60 ml/min; GLUCOSE 92 mg/dL (65-99); POTASSIUM 3.5 mmol/L (3.5-5.1); SODIUM 145 mmol/L (136-145)
[2016-07-22 06:31] LABS: BASO % 0.4 % (0.0-1.0); EOS # 0.5 10*3/uL (0.0-0.4); EOS % 5.8 % (1.0-4.0); HEMATOCRIT 34.1 % (42.0-52.0); HEMOGLOBIN 10.8 g/dl (14.0-18.0); IG # 0.1 10*3/uL (0.0-0.1); LYMPH # 0.9 10*3/uL (1.3-4.4); LYMPH % 10.3 % (27.0-41.0); MEAN CELL VOLUME 84.6 fl (80.0-94.0); MEAN CORPUSCULAR HGB 26.8 pg (27.0-31.0); MEAN CORPUSCULAR HGB CONC 31.7 g/dl (33.0-37.0); MONO # 0.9 10*3/uL (0.1-1.0); MONO % 10.2 % (3.0-9.0); NEUT # 6.4 10*3/uL (2.3-7.9); NEUT % 71.8 % (47.0-73.0); PLATELET COUNT AUTOMATED 304 10*3/uL (130-400); RED BLOOD COUNT 4.03 10*6/uL (4.50-5.90); RED CELL DISTRI WIDTH 16.9 % (0-14.5); WHITE BLOOD COUNT 8.9 10*3/uL (4.8-10.8)
[2016-07-22] MEDS ORDERED: BACTROBAN OINT0.9 GM NAS (07:31)
[2016-07-22 08:00] VITALS: BP 134/70
[2016-07-22] MEDS ORDERED: BACTRIM DS 8001 TA1 PO (10:31)
[2016-07-22 12:00] VITALS: BP 136/66
== END 2016-07-22 15:08 | disposition other institution (70) | DRG 177 ==
LOC: ED 20:10 → EDHOLD 07-17 01:44 → 4E 07-17 01:44
PROVIDERS: Emergency Medicine Emergency Medical Services; Internal Medicine; Internal Medicine Critical Care Medicine
PROC: 0BC98ZZ Extirpation of Matter from Lingula Bronchus, Via Natural or Artificial Opening Endoscopic (ICD-10-PCS; principal; 2016-07-20)
PROC: 0BC48ZZ Extirpation of Matter from Right Upper Lobe Bronchus, Via Natural or Artificial Opening Endoscopic (ICD-10-PCS; principal; 2016-07-20)
PROC: 0BC58ZZ Extirpation of Matter from Right Middle Lobe Bronchus, Via Natural or Artificial Opening Endoscopic (ICD-10-PCS; principal; 2016-07-20)
PROC: 0BC88ZZ Extirpation of Matter from Left Upper Lobe Bronchus, Via Natural or Artificial Opening Endoscopic (ICD-10-PCS; principal; 2016-07-20)
PROC: 0B968ZX Drainage of Right Lower Lobe Bronchus, Via Natural or Artificial Opening Endoscopic, Diagnostic (ICD-10-PCS; principal; 2016-07-20)
DX: J69.0 Pneumonitis due to inhalation of food and vomit (principal); J96.20 Acute and chronic respiratory failure, unspecified whether with hypoxia or hypercapnia; N17.9 Acute kidney failure, unspecified; J44.1 Chronic obstructive pulmonary disease with (acute) exacerbation; J44.0 Chronic obstructive pulmonary disease with (acute) lower respiratory infection; F17.210 Nicotine dependence, cigarettes, uncomplicated; F03.90 Unspecified dementia, unspecified severity, without behavioral disturbance, psychotic disturbance, mood disturbance, and anxiety; K59.09 Other constipation; I12.9 Hypertensive chronic kidney disease with stage 1 through stage 4 chronic kidney disease, or unspecified chronic kidney disease; N18.3 Chronic kidney disease, stage 3 (moderate); R62.7 Adult failure to thrive; I10 Essential (primary) hypertension; E55.9 Vitamin D deficiency, unspecified; Z90.3 Acquired absence of stomach [part of]; Z98.890 Other specified postprocedural states; Z82.61 Family history of arthritis; Z22.322 Carrier or suspected carrier of Methicillin resistant Staphylococcus aureus

== ENCOUNTER 2016-07-27 15:17 | Emergency (ER) | payer MEDICARE ==
[~2016-07-27] VITALS: Wt 81.6 kg
--- NOTE | ~2016-07-27 | EKG ---
[place], [place] ELECTROCARDIOGRAM REPORT NAME: VALENCIA BEE UNIT #: [id number] ROOM: DOCTOR: LUX TYLER MD BIRTHDATE: [birth year] DOS: 07/27/2016 TIME: 1545 hours. Normal sinus rhythm at 82 beats per minute. Low voltage in limb leads. Low voltage T-waves in chest leads. An abnormal ECG. No previous tracing is available for comparison. LUX TYLER MD CM:EKGRPT:ELECTROCARDIOGRAM REPORT [id number] LUX TYLER MD
[~2016-07-27 15:17] MED LIST changes: +ARTHRITIS PAIN650 MG PO; +BACTRIM DS 8001 TA1 PO; +BACTROBAN OINT0.9 GM NAS
[2016-07-27 15:19] VITALS: BP 146/82
[2016-07-27 16:39] LABS: BASO # 0.1 10*3/uL (0.0-0.1); BASO % 0.5 % (0.0-1.0); EOS # 0.6 10*3/uL (0.0-0.4); EOS % 5.5 % (1.0-4.0); HEMATOCRIT 37.7 % (42.0-52.0); HEMOGLOBIN 12.1 g/dl (14.0-18.0); IG # 0.2 10*3/uL (0.0-0.1); LYMPH # 0.8 10*3/uL (1.3-4.4); MEAN CELL VOLUME 84.7 fl (80.0-94.0); MEAN CORPUSCULAR HGB 27.2 pg (27.0-31.0); MEAN CORPUSCULAR HGB CONC 32.1 g/dl (33.0-37.0); MEAN PLATELET VOLUME 10.3 fl (9.6-12.3); MONO # 0.8 10*3/uL (0.1-1.0); MONO % 7.7 % (3.0-9.0); NEUT # 8.4 10*3/uL (2.3-7.9); NEUT % 77.4 % (47.0-73.0); PLATELET COUNT AUTOMATED 322 10*3/uL (130-400); RED BLOOD COUNT 4.45 10*6/uL (4.50-5.90); RED CELL DISTRI WIDTH 17.7 % (0-14.5); WHITE BLOOD COUNT 10.8 10*3/uL (4.8-10.8)
[2016-07-27 17:00] LABS: ALBUMIN 2.3 gm/dl (3.1-4.5); BILIRUBIN, TOTAL 0.2 mg/dl (0.2-1.0); POTASSIUM 4.3 mmol/L (3.5-5.1); TOTAL PROTEIN 7.4 gm/dL (6.4-8.2); TROPONIN I 0.061 ng/ml (<0.5)
== END 2016-07-27 17:23 ==
LOC: ED 15:17
PROVIDERS: Student in an Organized Health Care Education/Training Program
DX: S00.93XA Contusion of unspecified part of head, initial encounter (principal); F32.9 Major depressive disorder, single episode, unspecified; K21.9 Gastro-esophageal reflux disease without esophagitis; I10 Essential (primary) hypertension; M19.90 Unspecified osteoarthritis, unspecified site; Z79.899 Other long term (current) drug therapy; G20 Parkinson's disease; W18.39XA Other fall on same level, initial encounter; Y93.9 Activity, unspecified; Y92.129 Unspecified place in nursing home as the place of occurrence of the external cause; Y99.9 Unspecified external cause status